=== PATIENT | female | born 1980 | race American Indian/Alaskan Native ===

== ENCOUNTER 2017-08-29 12:07 | Inpatient (IN) | payer SELFPAY ==
[2017-08-29] MEDS ORDERED: CARDIZEM ONE (12:16)
[2017-08-29] MEDS ORDERED: ASPIRIN PO ONE (12:24)
[2017-08-29] MEDS ORDERED: CARDIZEM/D5W 100MG/100ML 100 MG/100 ML BAG IV ONE (12:26)
[2017-08-29] MEDS ORDERED: CARDIZEM IV ONE ×2 (12:26→13:15)
[2017-08-29] MEDS ORDERED: SODIUM CHLORIDE FLUSH SYRINGE 10 ML IV PRN (13:45)
[2017-08-29] MEDS ORDERED: PROVENTIL IH PRN (13:45)
--- NOTE | 2017-08-29 13:45 | History and Physical Report ---
History of Present Illness History of present illness: 37 YO Female with Nicotine Dependence presents to ED for evaluation. Pt states that she has experienced heart palpitations that began at 0230 hrs and awoke her from sleep. Pt also acknowledges chest discomfort. Pt denies fever, chills, CP, NVD, Trauma, unintentional weight loss, night sweats, productive cough, recent ill contacts. EMS was notified, and upon arrival the patient was found to have Atrial Fib with RVR. Pt was treated with Adenosine and transported to [facility] for further care and evaluation. Pt seen and evaluated in ED and admitted to ICU. Pt subsequently downgraded to telemetry with control of patient heart rate achieved. Cardiology consulted in ED. Past History Past Medical History: other (Nicotine dependence) Past Surgical History: No surgical history, Other (reviewed) Social history: smoking Family history: CAD, hypertension Medications and Allergies Allergies Allergy/AdvReac Type Severity Reaction Status Date / Time No Known Allergies Allergy Unverified 08/29/17 12:31 Home Medications Medication Instructions Recorded Confirmed Last Taken Type Aspirin/Acetaminophen/Caffeine 1 each PO Q6H PRN 08/29/17 08/29/17 Unknown History [[employer] Ex-Str Powder Packet] Ibuprofen [Motrin] 800 mg PO Q4-6H PRN 08/29/17 08/29/17 Unknown History Active Meds: Active Medications Diltiazem HCl (Cardizem/D5w 100mg/100ml) 100 mg in 100 mls @ 5 mls/hr IV TITR ONE; Protocol Stop: 08/30/17 08:25 Review of Systems Constitutional: no weight loss, no weight gain, no fever, no chills Ears, nose, mouth and throat: no ear pain, no ear discharge, no tinnitis, no decreased hearing, no nose pain, no nasal congestion, no nasal discharge Breasts: no change in shape, no swelling, no mass Cardiovascular: palpitations, no chest pain, no orthopnea, no edema, no syncope , no lightheadedness Respiratory: no cough, no cough with sputum, no excessive sputum, no hemoptysis , no shortness of breath Gastrointestinal: no nausea, no vomiting, no diarrhea, no constipation, no change in bowel habits Genitourinary Female: no pelvic pain, no flank pain, no menorrhagia, no dysuria , no urinary frequency, no urgency Menstruation: no premenarcheal, no post hysterectomy, no ammenorrhea, no ammenorrhea on BC, no period normal Rectal: no pain, no incontinence, no bleeding Musculoskeletal: no neck stiffness, no neck pain, no shooting arm pain, no arm numbness/tingling, no low back pain, no shooting leg pain Integumentary: no rash, no pruritis, no redness, no sores, no wounds, no jaundice Neurological: no transient paralysis, no paralysis, no weakness, no parathesias , no numbness, no tingling, no seizures, no syncope Psychiatric: no memory loss, no change in sleep habits, no sleep disturbances, no insomnia, no hypersomnia, no change in appetite, no change in libido, no suicidal ideation Endocrine: no cold intolerance, no heat intolerance, no polyphagia, no excessive thirst, no polydipsia, no polyuria, no nocturia, no excessive sweating Hematologic/Lymphatic: no easy bruising, no easy bleeding, no lymphadenopathy, no lymphedema Allergic/Immunologic: no urticaria, no allergic rhinitis, no wheezing, no persistent infections Exam - Constitutional Vitals: Temp Pulse Resp BP Pulse Ox 97.4 F L 153 H 31 H 126/91 100 08/29/17 12:17 08/29/17 12:20 08/29/17 12:17 08/29/17 12:20 08/29/17 12:17 General appearance: Present: mild distress - EENT Eyes: Present: PERRL ENT: hearing intact, clear oral mucosa - Neck Neck: Present: supple, normal ROM - Respiratory Respiratory effort: normal Respiratory: bilateral: CTA - Cardiovascular Rhythm: irregularly irregular Heart Sounds: Present: S1 & S2. Absent: rub, click - Extremities Extremities: pulses symmetrical, No edema Peripheral Pulses: within normal limits - Abdominal General gastrointestinal: Present: soft, non-tender, non-distended, normal bowel sounds Female genitourinary: Present: normal - Integumentary Integumentary: Present: clear, warm, dry - Musculoskeletal Musculoskeletal: gait normal, strength equal bilaterally - Psychiatric Psychiatric: appropriate mood/affect, intact judgment & insight - Neurologic Neurologic: CNII-XII intact, moves all extremities Results - Labs CBC & Chem 7: 08/29/17 13:22 08/29/17 13:22 Assessment and Plan - Patient Problems (1) Atrial fibrillation with RVR Current Visit: Yes Status: Acute Plan to address problem: Shawna tracy, Admit to ICU, serial ekg, cardiology consulted in ED The high probability of a clinically significant, sudden or life threatening deterioration of the [cardiac, pulmonary, renal] system(s) required my full and direct attention, intervention and personal management. The aggregate critical care time was [65] minutes. This time is in addition to time spent performing reported procedures but includes the following: [x] Data Review and interpretation [x] Patient assessment and monitoring of vital signs [x] Documentation [x] Medication orders and management (2) Nicotine dependence Current Visit: Yes Status: Acute Qualifiers: Nicotine product type: cigarettes Substance use status: in withdrawal Qualified Code(s): F17.213 - Nicotine dependence, cigarettes, with withdrawal Plan to address problem: smoking cessation counseling, (3) Hypokalemia Current Visit: Yes Status: Acute Plan to address problem: repleted in ED (4) Hypomagnesemia Current Visit: Yes Status: Acute Plan to address problem: repleted in ED, (5) Acidosis Current Visit: Yes Status: Acute Plan to address problem: IVF resuscitation therapy, treat Atrial fib (6) Heart failure Current Visit: Yes Status: Acute Qualifiers: Heart failure type: diastolic Heart failure chronicity: acute Qualified Code(s): I50.31 - Acute diastolic (congestive) heart failure Plan to address problem: Echo, Admit to telemetry, cardiology consulted in ED, strict I/O, monitor uop q shift, daily weight, thyroid panel (7) DVT prophylaxis Current Visit: Yes Status: Acute Plan to address problem: scd to ble while in bed
--- NOTE | 2017-08-29 13:46 | XRay Report ---
PORTABLE CHEST INDICATION: Hypertension. COMPARISON: None similar at this institution. FINDINGS: Portable, frontal chest radiograph suggests top normal heart size. Normal mediastinal and hilar contours. Clear lungs. Intact bones. EKG leads. CONCLUSION: No acute disease. Thank you for the opportunity to participate in this patient's care.
[2017-08-29 13:49] LABS: Basophils % (Auto) 0.7 % (0.0-1.8); Eosinophils % (Auto) 0.1 % (0.0-4.3); Hematocrit 42.4 % (30.3-42.9); Hemoglobin 14.4 gm/dl (10.1-14.3); Lymphocytes # (Auto) 0.8 K/mm3 (1.2-5.4); Lymphocytes % (Auto) 12.9 % (13.4-35.0); Mean Corpuscular HGB Conc 34 % (30-34); Mean Corpuscular Hemoglobin 27 pg (28-32); Mean Corpuscular Volume 79 fl (79-97); Monocytes # (Auto) 0.5 K/mm3 (0.0-0.8); Monocytes % (Auto) 9.1 % (0.0-7.3); Platelet Count 187 K/mm3 (140-440); Red Blood Count 5.34 M/mm3 (3.65-5.03); Red Cell Distribution Width 14.8 % (13.2-15.2)
[2017-08-29 13:57] LABS: INR 0.87 (0.87-1.13)
[2017-08-29 13:58] LABS: Partial Thromboplastin Time 32.2 Sec. (24.2-36.6)
[2017-08-29 14:09] LABS: BUN/Creatinine Ratio 23; Blood Urea Nitrogen 9 mg/dL (7-17); Calcium 8.9 mg/dL (8.4-10.2); Hemolysis Index 4
[2017-08-29 14:11] LABS: Alanine Aminotransferase 23 units/L (7-56); Albumin 3.6 g/dL (3.9-5)
[2017-08-29 14:19] LABS: Free T4 (Free Thyroxine) 1.34 ng/dL (0.76-1.46)
[2017-08-29 14:33] LABS: Bilirubin,Direct < 0.2 mg/dL (0-0.2)
[2017-08-29] MEDS ORDERED: MAGNESIUM SULFATE 2GM/50ML 2 GM/50 ML BAG IV ONE (14:34)
[2017-08-29] MEDS ORDERED: K-DUR PO ONE (14:34)
--- NOTE | 2017-08-29 15:11 | Emergency Department Report ---
ED General Adult HPI - General Chief complaint: Arrhythmia/Palpitations Stated complaint: AFIB Time Seen by Provider: 08/29/17 12:23 Source: EMS Mode of arrival: Stretcher Limitations: Physical Limitation - History of Present Illness Initial comments: 37-year-old female presents to the emergency department complaining of her heart racing since 2:30 at night. He states that she has had some chest discomfort anterior and nonradiating and nonpleuritic. She thinks she might of had some fever or chills and has had occasional cough. She denies hemoptysis. She denies leg pain or swelling. She's had no recent travel. She actually has not checked her temperature. She states she only drinks alcohol 2 times a month. She's had no prior history of atrial fibrillation or cardiac problems nor any thyroid disease. -: Gradual Location: chest Radiation: non-radiation Severity scale (0 -10): 0 Quality: other (discomfort) Consistency: intermittent Improves with: none Worsens with: none Associated Symptoms: denies other symptoms, chest pain, cough, fever/chills ( undocumented), shortness of breath Treatments Prior to Arrival: other (EMS gave adenosine and was unsuccessful) - Related Data Home Medications Medication Instructions Recorded Confirmed Last Taken Aspirin/Acetaminophen/Caffeine 1 each PO Q6H PRN 08/29/17 08/29/17 Unknown [[employer] Ex-Str Powder Packet] Ibuprofen [Motrin] 800 mg PO Q4-6H PRN 08/29/17 08/29/17 Unknown Allergies Allergy/AdvReac Type Severity Reaction Status Date / Time No Known Allergies Allergy Unverified 08/29/17 12:31 ED Review of Systems ROS: Stated complaint: AFIB Other details as noted in HPI Constitutional: chills (subjective didn't check temperature), fever Eyes: denies: eye pain, eye discharge, vision change ENT: denies: ear pain, throat pain Respiratory: cough (nonproductive), shortness of breath. denies: wheezing Cardiovascular: chest pain (vague and intermittent). denies: palpitations Endocrine: no symptoms reported Gastrointestinal: denies: abdominal pain, nausea, diarrhea Genitourinary: denies: urgency, dysuria, discharge Musculoskeletal: denies: back pain, joint swelling, arthralgia, myalgia Skin: denies: rash, lesions Neurological: denies: headache, weakness, paresthesias Psychiatric: denies: anxiety, depression Hematological/Lymphatic: denies: easy bleeding, easy bruising ED Past Medical Hx - Past Medical History Previous Medical History?: No - Social History Smoking Status: Current Some Day Smoker Substance Use Type: Alcohol - Medications Home Medications: Home Medications Medication Instructions Recorded Confirmed Last Taken Type Aspirin/Acetaminophen/Caffeine 1 each PO Q6H PRN 08/29/17 08/29/17 Unknown History [[employer] Ex-Str Powder Packet] Ibuprofen [Motrin] 800 mg PO Q4-6H PRN 08/29/17 08/29/17 Unknown History ED Physical Exam - General Limitations: No Limitations General appearance: alert, in no apparent distress - Head Head exam: Present: atraumatic, normocephalic - Eye Eye exam: Present: normal appearance. Absent: PERRL, EOMI, scleral icterus - ENT ENT exam: Present: normal exam, mucous membranes moist - Neck Neck exam: Present: normal inspection. Absent: tenderness, meningismus - Respiratory Respiratory exam: Present: normal lung sounds bilaterally. Absent: respiratory distress - Cardiovascular Cardiovascular Exam: Present: tachycardia, irregular rhythm. Absent: systolic murmur, diastolic murmur, rubs, gallop - GI/Abdominal GI/Abdominal exam: Present: soft, normal bowel sounds. Absent: distended, tenderness, guarding, rebound, rigid - Extremities Exam Extremities exam: Present: normal inspection - Back Exam Back exam: Present: normal inspection - Neurological Exam Neurological exam: Present: alert, oriented X3, CN II-XII intact. Absent: motor sensory deficit - Psychiatric Psychiatric exam: Present: normal affect, normal mood - Skin Skin exam: Present: warm, dry, intact, normal color. Absent: rash ED Course Vital Signs 08/29/17 08/29/17 12:17 12:20 Temperature 97.4 F L Pulse Rate 153 H 153 H Respiratory 31 H Rate Blood Pressure 126/91 126/91 Blood Pressure 126/91 [Right] O2 Sat by Pulse 100 Oximetry - Reevaluation(s) Reevaluation #1: Patient was given diltiazem and placed on it diltiazem drip. This is beneficial. She was found to have hypokalemia and hypomagnesemia. A chest x- ray was normal her white count was normal. I do not think this patient has an infection. However I will order a d-dimer. I don't think she needs empiric By obvious. She is admitted by Dr. Alvarez for further care and evaluation in stable condition. Stress with Dr. Aguilar and consulted. 08/29/17 15:17 08/29/17 15:19 ED Medical Decision Making - Lab Data Result diagrams: 08/29/17 13:22 08/29/17 13:22 Laboratory Results - last 24 hr 08/29/17 08/29/17 08/29/17 13:22 13:22 13:22 WBC 6.0 RBC 5.34 H Hgb 14.4 H Hct 42.4 MCV 79 MCH 27 L MCHC 34 RDW 14.8 Plt Count 187 Lymph % (Auto) 12.9 L [place] % (Auto) 9.1 H Eos % (Auto) 0.1 Baso % (Auto) 0.7 Lymph # 0.8 L [place] # 0.5 Eos # 0.0 Baso # 0.0 Seg Neutrophils % 77.2 H Seg Neutrophils # 4.6 PT 12.3 INR 0.87 APTT 32.2 Sodium 140 Potassium 2.9 L* Chloride 104.6 Carbon Dioxide 19 L Anion Gap 19 BUN 9 Creatinine 0.4 L Estimated GFR > 60 BUN/Creatinine Ratio 23 Glucose 103 H Lactic Acid Calcium 8.9 Magnesium Total Bilirubin Direct Bilirubin Indirect Bilirubin AST ALT Alkaline Phosphatase Troponin T < 0.010 NT-Pro-B Natriuret Pep Total Protein Albumin Albumin/Globulin Ratio TSH Free T4 HCG, Qual 08/29/17 08/29/17 08/29/17 13:22 13:22 13:22 WBC RBC Hgb Hct MCV MCH MCHC RDW Plt Count Lymph % (Auto) [place] % (Auto) Eos % (Auto) Baso % (Auto) Lymph # [place] # Eos # Baso # Seg Neutrophils % Seg Neutrophils # PT INR APTT Sodium Potassium Chloride Carbon Dioxide Anion Gap BUN Creatinine Estimated GFR BUN/Creatinine Ratio Glucose Lactic Acid 2.20 H* Calcium Magnesium 1.60 L Total Bilirubin 0.60 Direct Bilirubin < 0.2 Indirect Bilirubin 0.4 AST 45 H ALT 23 Alkaline Phosphatase 66 Troponin T NT-Pro-B Natriuret Pep 748.6 H Total Protein 8.6 H Albumin 3.6 L Albumin/Globulin Ratio 0.7 TSH Free T4 HCG, Qual Negative 08/29/17 13:22 WBC RBC Hgb Hct MCV MCH MCHC RDW Plt Count Lymph % (Auto) [place] % (Auto) Eos % (Auto) Baso % (Auto) Lymph # [place] # Eos # Baso # Seg Neutrophils % Seg Neutrophils # PT INR APTT Sodium Potassium Chloride Carbon Dioxide Anion Gap BUN Creatinine Estimated GFR BUN/Creatinine Ratio Glucose Lactic Acid Calcium Magnesium Total Bilirubin Direct Bilirubin Indirect Bilirubin AST ALT Alkaline Phosphatase Troponin T NT-Pro-B Natriuret Pep Total Protein Albumin Albumin/Globulin Ratio TSH 3.150 Free T4 1.34 HCG, Qual - EKG Data -: EKG Interpreted by Me Rate: tachycardia - EKG Data Interpretation: other (fibrillation with rapid ventricular response nonspecific ST-T wave changes normal axis) - Radiology Data interpreted by me: Chest x-ray no acute process Critical care attestation.: If time is entered above; I have spent that time in minutes in the direct care of this critically ill patient, excluding procedure time. ED Disposition Clinical Impression: Atrial fibrillation with RVR, Hypokalemia, Hypomagnesemia URI (upper respiratory infection) Qualifiers: URI type: unspecified viral URI Qualified Code(s): J06.9 - Acute upper respiratory infection, unspecified Disposition: -09 OP ADMIT IP TO THIS HOSP Is pt being admited?: Yes Does the pt Need Aspirin: Yes Condition: Stable Referrals: PRIMARY CARE, [Primary Care Provider] - 3-5 Days Time of Disposition: 15:21
[2017-08-29] MEDS: CARDIZEM PO SCH ×2 (16:11→17:43)
--- NOTE | 2017-08-29 17:46 | Consultation ---
History of Present Illness Consult date: 08/29/17 Consult reason: atrial fibrillation History of present illness: The patient is a 37-year-old woman with no prior cardiac history. She presents to the emergency room with symptoms of shortness of breath and palpitations, found with rapid atrial fibrillation. Her symptoms began less than 24 hours ago , and she feels better after intravenous diltiazem given in the emergency room has achieved modest rate control. There is no chest pain, no edema and no syncope. Her symptoms followed some alcohol use, she states that she took at least 2 drinks prior to onset of palpitations. In addition, she admits to heavy consumption of high caffeine beverages such as red bull. She denies history of thyroid disease or prior cardiac dysrhythmia. Laboratory values in the emergency room include a low potassium of 2.9, low magnesium of 1.6, but normal TSH. Past History Past Medical History: other (Nicotine dependence) Past Surgical History: No surgical history, Other (reviewed) Social history: smoking Family history: CAD, hypertension Medications and Allergies Allergies Allergy/AdvReac Type Severity Reaction Status Date / Time No Known Allergies Allergy Unverified 08/29/17 12:31 Home Medications Medication Instructions Recorded Confirmed Last Taken Type Aspirin/Acetaminophen/Caffeine 1 each PO Q6H PRN 08/29/17 08/29/17 Unknown History [[employer] Ex-Str Powder Packet] Ibuprofen [Motrin] 800 mg PO Q4-6H PRN 08/29/17 08/29/17 Unknown History Active Meds: Active Medications Albuterol (Proventil) 2.5 mg IH Q3HRT PRN PRN Reason: Shortness Of Breath Diltiazem HCl (Cardizem) 30 mg PO Q6HR [facility] Last Admin: 08/29/17 17:43 Dose: Not Given Sodium Chloride (Sodium Chloride Flush Syringe 10 Ml) 10 ml IV BID BETTY Sodium Chloride (Sodium Chloride Flush Syringe 10 Ml) 10 ml IV PRN PRN PRN Reason: LINE FLUSH Review of Systems Cardiovascular: palpitations, rapid/irregular heart beat, shortness of breath, no chest pain, no orthopnea, no edema, no syncope, no lightheadedness Physical Examination Vital Signs Pulse Resp 133 H 29 H 08/29/17 12:10 08/29/17 12:10 General appearance: no acute distress HEENT: Positive: PERRL Cardiac: Positive: irregularly irregular Lungs: Positive: Decreased Breath Sounds Neuro: Positive: Grossly Intact Abdomen: Positive: Soft Female genitourinary: deferred Skin: Positive: Clear Extremities: Absent: edema Results 08/29/17 13:22 08/29/17 13:22 Cardiac Enzymes 08/29/17 Range/Units 13:22 AST 45 H (5-40) units/L Coagulation 08/29/17 Range/Units 13:22 PT 12.3 (12.2-14.9) Sec. INR 0.87 (0.87-1.13) APTT 32.2 (24.2-36.6) Sec. CBC 08/29/17 Range/Units 13:22 WBC 6.0 (4.5-11.0) K/mm3 RBC 5.34 H (3.65-5.03) M/mm3 Hgb 14.4 H (10.1-14.3) gm/dl Hct 42.4 (30.3-42.9) % Plt Count 187 (140-440) K/mm3 Lymph # 0.8 L (1.2-5.4) K/mm3 [place] # 0.5 (0.0-0.8) K/mm3 Eos # 0.0 (0.0-0.4) K/mm3 Baso # 0.0 (0.0-0.1) K/mm3 Comprehensive Metabolic Panel 08/29/17 08/29/17 Range/Units 13:22 13:22 Sodium 140 (137-145) mmol/L Potassium 2.9 L* (3.6-5.0) mmol/L Chloride 104.6 (98-107) mmol/L Carbon Dioxide 19 L (22-30) mmol/L BUN 9 (7-17) mg/dL Creatinine 0.4 L (0.7-1.2) mg/dL Glucose 103 H (65-100) mg/dL Calcium 8.9 (8.4-10.2) mg/dL Direct Bilirubin < 0.2 (0-0.2) mg/dL Indirect Bilirubin 0.4 mg/dL AST 45 H (5-40) units/L ALT 23 (7-56) units/L Alkaline Phosphatase 66 (35-129) units/L Total Protein 8.6 H (6.3-8.2) g/dL Albumin 3.6 L (3.9-5) g/dL EKG interpretations - Telemetry EKG Rhythm: Atrial Fibrillation Assessment and Plan - Patient Problems (1) Atrial fibrillation with RVR Current Visit: Yes Status: Acute Plan to address problem: Patient admitted with new onset atrial fibrillation. Optimal rate control has been achieved with Cardizem, which will be continued. An echocardiogram will be done for left ventricular function assessment. In addition to alcohol and caffeinated beverages, high low potassium and low magnesium and also potential etiologies. We will recommend reduction of electrolyte abnormalities.
[2017-08-29] MEDS ORDERED: CORDARONE 150 MG in D5W 100 ML IV ONE (18:23)
[2017-08-29 20:56] LABS: Amphetamine Screen,Urine PRESUMPTIVE NEGATIVE; Benzodiazepines Screen,Urine PRESUMPTIVE NEGATIVE; Cocaine Screen,Urine PRESUMPTIVE NEGATIVE; Methadone Screen,Urine PRESUMPTIVE NEGATIVE; Opiate Screen,Urine PRESUMPTIVE NEGATIVE
[2017-08-29 21:11] LABS: Cannabinoid Screen,Urine PRESUMPTIVE POSITIVE
[2017-08-29] MEDS: HEPARIN SUB-Q SCH (22:17)
[2017-08-29] MEDS: SODIUM CHLORIDE FLUSH SYRINGE 10 ML IV SCH (22:17)
[2017-08-29] MEDS ORDERED: AMBIEN PO PRN (23:16)
[2017-08-30] MEDS: CARDIZEM PO SCH ×4 (00:25→20:00)
[2017-08-30] MEDS: HEPARIN SUB-Q SCH (09:56)
--- NOTE | 2017-08-30 10:40 | Progress Note ---
Assessment and Plan Assessment and plan: Patient is a 37 yo woman with history of tobacco dependancy who pw sob and palpitations. found with rapid atrial fibrillation. Her symptoms began less than 24 hours ago, and she feels better after intravenous diltiazem given in the emergency room has achieved modest rate control. Patient was found to have very low potassium levels of 2.9, low magnesium of 1.6, but normal TSH, UDS positive for marijuana. * pCXR reported as normal -Atrial fibrillation with RVR: Patient admitted with new onset atrial fibrillation. Optimal rate control has been achieved with Cardizem, which will be continued. An echocardiogram will be done for left ventricular function assessment. Advised to limit alcohol and caffeine beverages. Cardiology is following -Nicotine dependence: smoking cessation counseling -Severe Hypokalemia: repleted in ED -Hypomagnesemia: repleted in ED, -Suspected metabolic Acidosis: IVF resuscitation therapy, treat Atrial fib -Suspected Acute diastolic Heart failure: Echo, Admit to telemetry, cardiology consulted in ED, strict I/O, monitor uop q shift, daily weight, thyroid panel -DVT prophylaxis: scd to ble while in bed, sq heparin D/w Dr. Aguilar, ok to discharge if potassium, mag levels are stable and he will contact me if anything is wrong with ECHO. Dr. Aguilar wants her on Eliquis, Amidarone 200mg/d and Cardizem CD 180mg/d with follow up in his office. However , the D-Dimer is elevated; therefore, will order stat CTA chest r/o PE. History Interval history: Patient was seen and examined. Follow-up on current diagnosis of palpitation, resolved. Overnight uneventful. Patient denies any chest pain, shortness breath , nausea/vomiting or severe headaches. Imaging, nursing note, chart, labs and old chart reviewed. Discussed with patient. Hospitalist Physical - Physical exam Narrative exam: GEN: WDWN, NAD, Awake, Alert, Orientated x 3 HEENT: NCAT, EOMI, PERRL, OP Clear NECK: supple, no adenopathy, no thyromegaly, no JVD CVS/HEART: RRR, normal S1S2, pulses present bilaterally CHEST/LUNGS: CTA B, Symmetrical chest expansion, good air entry bilaterally GI/Abdomen: soft, NTND, good bowel sounds, no guarding or rebound /Bladder: no suprapubic tenderness, no CVA or paraspinal tenderness EXT/Skin: no c/c/e, no obvious rash MSK: FROM x 4 Neuro: CN 2-12 grossly intact, no new focal deficits Psych: calm - Constitutional Vitals: Temp Pulse Resp BP Pulse Ox 98.4 F 84 18 117/74 98 08/29/17 23:49 08/30/17 07:33 08/29/17 23:49 08/30/17 06:29 08/29/17 23:49 General appearance: Present: no acute distress Results - Labs CBC & Chem 7: 08/29/17 13:22 08/30/17 10:57 Labs: Laboratory Last Values WBC 6.0 K/mm3 (4.5-11.0) 08/29/17 13:22 RBC 5.34 M/mm3 (3.65-5.03) H 08/29/17 13:22 Hgb 14.4 gm/dl (10.1-14.3) H 08/29/17 13:22 Hct 42.4 % (30.3-42.9) 08/29/17 13:22 MCV 79 fl (79-97) 08/29/17 13:22 MCH 27 pg (28-32) L 08/29/17 13:22 MCHC 34 % (30-34) 08/29/17 13:22 RDW 14.8 % (13.2-15.2) 08/29/17 13:22 Plt Count 187 K/mm3 (140-440) 08/29/17 13:22 Lymph % (Auto) 12.9 % (13.4-35.0) L 08/29/17 13:22 Sac % (Auto) 9.1 % (0.0-7.3) H 08/29/17 13:22 Eos % (Auto) 0.1 % (0.0-4.3) 08/29/17 13:22 Baso % (Auto) 0.7 % (0.0-1.8) 08/29/17 13:22 Lymph # 0.8 K/mm3 (1.2-5.4) L 08/29/17 13:22 Sac # 0.5 K/mm3 (0.0-0.8) 08/29/17 13:22 Eos # 0.0 K/mm3 (0.0-0.4) 08/29/17 13:22 Baso # 0.0 K/mm3 (0.0-0.1) 08/29/17 13:22 Seg Neutrophils % 77.2 % (40.0-70.0) H 08/29/17 13:22 Seg Neutrophils # 4.6 K/mm3 (1.8-7.7) 08/29/17 13:22 PT 12.3 Sec. (12.2-14.9) 08/29/17 13:22 INR 0.87 (0.87-1.13) 08/29/17 13:22 APTT 32.2 Sec. (24.2-36.6) 08/29/17 13:22 D-Dimer 587.00 ng/mlDDU (0-234) H 08/29/17 16:47 Sodium 140 mmol/L (137-145) 08/29/17 13:22 Potassium 2.9 mmol/L (3.6-5.0) L* 08/29/17 13:22 Chloride 104.6 mmol/L (98-107) 08/29/17 13:22 Carbon Dioxide 19 mmol/L (22-30) L 08/29/17 13:22 Anion Gap 19 mmol/L 08/29/17 13:22 BUN 9 mg/dL (7-17) 08/29/17 13:22 Creatinine 0.4 mg/dL (0.7-1.2) L 08/29/17 13:22 Estimated GFR > 60 ml/min 08/29/17 13:22 BUN/Creatinine Ratio 23 % 08/29/17 13:22 Glucose 103 mg/dL (65-100) H 08/29/17 13:22 Lactic Acid 1.70 mmol/L (0.7-2.0) 08/29/17 16:47 Calcium 8.9 mg/dL (8.4-10.2) 08/29/17 13:22 Magnesium 1.60 mg/dL (1.7-2.3) L 08/29/17 13:22 Total Bilirubin 0.60 mg/dL (0.1-1.2) 08/29/17 13:22 Direct Bilirubin < 0.2 mg/dL (0-0.2) 08/29/17 13:22 Indirect Bilirubin 0.4 mg/dL 08/29/17 13:22 AST 45 units/L (5-40) H 08/29/17 13:22 ALT 23 units/L (7-56) 08/29/17 13:22 Alkaline Phosphatase 66 units/L (35-129) 08/29/17 13:22 Troponin T < 0.010 ng/mL (0.00-0.029) 08/29/17 17:51 NT-Pro-B Natriuret Pep 748.6 pg/mL (0-450) H 08/29/17 13:22 Total Protein 8.6 g/dL (6.3-8.2) H 08/29/17 13:22 Albumin 3.6 g/dL (3.9-5) L 08/29/17 13:22 Albumin/Globulin Ratio 0.7 % 08/29/17 13:22 TSH 3.150 mlU/mL (0.270-4.200) 08/29/17 13:22 Free T4 1.34 ng/dL (0.76-1.46) 08/29/17 13:22 HCG, Qual Negative (Negative) 08/29/17 13:22 Urine Opiates Screen Presumptive negative 08/29/17 20:13 Urine Methadone Screen Presumptive negative 08/29/17 20:13 Ur Barbiturates Screen Presumptive negative 08/29/17 20:13 Ur Phencyclidine Scrn Presumptive negative 08/29/17 20:13 Ur Amphetamines Screen Presumptive negative 08/29/17 20:13 U Benzodiazepines Scrn Presumptive negative 08/29/17 20:13 Urine Cocaine Screen Presumptive negative 08/29/17 20:13 U Marijuana (THC) Screen Presumptive positive 08/29/17 20:13 Drugs of Abuse Note Disclamer 08/29/17 20:13
--- NOTE | 2017-08-30 11:43 | Progress Note ---
Assessment and Plan New onset atrial fibrillation, paroxysmal likely s/t to alcohol and caffeinated beverages, low potassium and low magnesium. currently in sinus rhythm on cardizem for suppression normal TSH Hypokalemia Hypomagnesemia Plan: Echocardiogram today, for left ventricular function assessment. Continue cardizem for paroxysmal atrial fibrillation. In addition, we will add amiodarone for suppression of afib. Initiate oral anticoagulation with eliquis for CVA prophylaxis. Subjective Date of service: 08/30/17 Interval history: Patient has no complaints. She denies palpitations overnight. Stable sinus rhythm on telemetry. Morning labs pending. Objective Vital Signs Temp Pulse Resp BP BP Pulse Ox 08/30/17 07:33 84 08/30/17 06:29 98 H 117/74 08/30/17 00:25 98 H 91/53 08/29/17 23:49 98.4 F 94 H 18 91/53 98 08/29/17 19:42 98.1 F 88 18 95/62 99 08/29/17 17:58 87 18 113/71 100 08/29/17 15:00 75 24 97/76 100 08/29/17 14:45 96 H 21 115/76 100 08/29/17 14:30 85 17 105/69 100 08/29/17 14:15 89 21 103/56 100 08/29/17 14:01 81 26 H 105/59 100 08/29/17 13:45 85 22 115/69 100 08/29/17 13:30 95 H 18 121/94 100 08/29/17 13:20 129 H 127/88 08/29/17 13:15 129 H 29 H 127/88 100 08/29/17 13:00 108 H 30 H 117/78 100 08/29/17 12:46 109 H 26 H 136/90 100 08/29/17 12:30 101 H 29 H 124/86 100 08/29/17 12:20 153 H 126/91 08/29/17 12:17 97.4 F L 153 H 31 H 126/91 126/91 100 08/29/17 12:16 139 H 35 H 126/91 100 08/29/17 12:10 133 H 29 H - Physical Examination General: No Apparent Distress HEENT: Positive: PERRL Cardiac: Positive: Reg Rate and Rhythm Lungs: Positive: Decreased Breath Sounds Neuro: Positive: Grossly Intact Extremities: Absent: edema - Labs and Meds Cardiac Enzymes 08/29/17 Range/Units 13:22 AST 45 H (5-40) units/L Coagulation 08/29/17 Range/Units 13:22 PT 12.3 (12.2-14.9) Sec. INR 0.87 (0.87-1.13) APTT 32.2 (24.2-36.6) Sec. CBC 08/29/17 Range/Units 13:22 WBC 6.0 (4.5-11.0) K/mm3 RBC 5.34 H (3.65-5.03) M/mm3 Hgb 14.4 H (10.1-14.3) gm/dl Hct 42.4 (30.3-42.9) % Plt Count 187 (140-440) K/mm3 Lymph # 0.8 L (1.2-5.4) K/mm3 Boundary # 0.5 (0.0-0.8) K/mm3 Eos # 0.0 (0.0-0.4) K/mm3 Baso # 0.0 (0.0-0.1) K/mm3 Comprehensive Metabolic Panel 08/29/17 08/29/17 Range/Units 13:22 13:22 Sodium 140 (137-145) mmol/L Potassium 2.9 L* (3.6-5.0) mmol/L Chloride 104.6 (98-107) mmol/L Carbon Dioxide 19 L (22-30) mmol/L BUN 9 (7-17) mg/dL Creatinine 0.4 L (0.7-1.2) mg/dL Glucose 103 H (65-100) mg/dL Calcium 8.9 (8.4-10.2) mg/dL Direct Bilirubin < 0.2 (0-0.2) mg/dL Indirect Bilirubin 0.4 mg/dL AST 45 H (5-40) units/L ALT 23 (7-56) units/L Alkaline Phosphatase 66 (35-129) units/L Total Protein 8.6 H (6.3-8.2) g/dL Albumin 3.6 L (3.9-5) g/dL
[2017-08-30 12:23] LABS: BUN/Creatinine Ratio 20; Blood Urea Nitrogen 10 mg/dL (7-17); Calcium 8.2 mg/dL (8.4-10.2); Hemolysis Index 3
[2017-08-30] MEDS: BABY ASPIRIN PO SCH (14:47)
[2017-08-30] MEDS: SODIUM CHLORIDE FLUSH SYRINGE 10 ML IV SCH ×2 (14:47→22:07)
[2017-08-30] MEDS ORDERED: CORDARONE PO ONE (15:00)
--- NOTE | 2017-08-30 18:40 | Cat Scan Report ---
FINAL REPORT EXAM: CT ANGIO CHEST HISTORY: elevated d-dimer, chest pains, afib TECHNIQUE: Spiral CTA of the chest after the uneventful administration of IV contrast. Multiplanar reformations. PRIORS: None. FINDINGS: Chest: The main and bilateral proximal pulmonary arteries are normally opacified without endoluminal filling defects. Cardiac size prominent or mildly enlarged. No apparent aneurysm, pseudoaneurysm or aortic dissection. No significant mediastinal lymph node enlargement. Multiple, prominent or mildly enlarged lymph nodes scattered in the bilateral axillary regions, left greater than right, largest measuring approximately 1.5 x 1.7 cm in cross-sectional diameter may be reactive, but nonspecific. Lungs show probable mild bibasilar atelectasis versus scarring. No discrete parenchymal mass, focal consolidation or pleural effusions. No apparent pneumothorax. Visualized upper abdomen grossly unremarkable. IMPRESSION: 1. No evidence of large vessel or central pulmonary emboli. No acute consolidation. 2. Mild axillary lymph node enlargement or adenopathy of uncertain etiology or significance. Clinical correlation and followup suggested.
[2017-08-30] MEDS: ELIQUIS PO SCH (21:30)
[2017-08-31] MEDS: CARDIZEM PO SCH ×2 (02:25→07:06)
[2017-08-31] MEDS ORDERED: MILK OF MAGNESIA PO PRN (06:55)
[2017-08-31] MEDS: BABY ASPIRIN PO SCH (09:21)
[2017-08-31] MEDS: ELIQUIS PO SCH (09:22)
[2017-08-31] MEDS: SODIUM CHLORIDE FLUSH SYRINGE 10 ML IV SCH (09:23)
[2017-08-31] MEDS ORDERED: CORDARONE PO SCH (10:00)
--- NOTE | 2017-08-31 10:20 | Discharge Summary ---
Providers - Providers Date of Admission: 08/29/17 13:58 Date of discharge: 08/31/17 Attending physician: SHERRELL ROA 08/29/17 12:57 Consult to Physician [CONS] Urgent Comment: Consulting Provider: DORENE BARBER Physician Instructions: Reason For Exam: AFIB 08/29/17 14:22 Consult to Physician [CONS] Urgent Comment: Consulting Provider: DORENE BARBER Physician Instructions: Reason For Exam: AF RVR Primary care physician: ROD PULLER Hospitalization Condition: Stable Hospital course: Patient is a 37 yo woman with history of tobacco dependancy who pw sob and palpitations. found with rapid atrial fibrillation. Her symptoms began less than 24 hours ago, and she feels better after intravenous diltiazem given in the emergency room has achieved modest rate control. Patient was found to have very low potassium levels of 2.9, low magnesium of 1.6, but normal TSH, UDS positive for marijuana. * pCXR reported as normal -Atrial fibrillation with RVR: Patient admitted with new onset atrial fibrillation. Optimal rate control has been achieved with Cardizem, which will be continued. An echocardiogram will be done for left ventricular function assessment. Advised to limit alcohol and caffeine beverages. Cardiology is following -Nicotine dependence: smoking cessation counseling -Severe Hypokalemia: repleted in ED -Hypomagnesemia: repleted in ED, -Suspected metabolic Acidosis: IVF resuscitation therapy, treat Atrial fib -Suspected Acute diastolic Heart failure: Echo, Admit to telemetry, cardiology consulted in ED, strict I/O, monitor uop q shift, daily weight, thyroid panel -DVT prophylaxis: scd to ble while in bed, sq heparin D/w Dr. Barber, ok to discharge if potassium, mag levels are stable and he will contact me if anything is wrong with ECHO. Dr. Barber wants her on Eliquis, Amidarone 200mg/d and Cardizem CD 180mg/d with follow up in his office. However , the D-Dimer is elevated; therefore, will order stat CTA chest r/o PE==>neg for PE Disposition: - TO HOME OR SELFCARE Time spent for discharge: 35 minutes Core Measure Documentation - Palliative Care Palliative Care/ Comfort Measures: Not Applicable - Core Measures Any of the following diagnoses?: none - VTE Discharge Requirements Deep Vein Thrombosis/Pulmonary Embolism Present on Admission: No Has pt received <5 days of overlap therapy or INR<2.0: No Anticoagulant overlap therapy prescribed at discharge: No Contraindication No Overlap Therapy order at DC: Not Indicated Exam - Physical Exam Narrative exam: GEN: WDWN, NAD, Awake, Alert, Orientated x 3 HEENT: NCAT, EOMI, PERRL, OP Clear NECK: supple, no adenopathy, no thyromegaly, no JVD CVS/HEART: RRR, normal S1S2, pulses present bilaterally CHEST/LUNGS: CTA B, Symmetrical chest expansion, good air entry bilaterally GI/Abdomen: soft, NTND, good bowel sounds, no guarding or rebound /Bladder: no suprapubic tenderness, no CVA or paraspinal tenderness EXT/Skin: no c/c/e, no obvious rash MSK: FROM x 4 Neuro: CN 2-12 grossly intact, no new focal deficits Psych: calm - Constitutional Vitals: Temp Pulse Resp BP Pulse Ox 98.2 F 85 18 134/92 98 08/31/17 07:31 08/31/17 07:31 08/31/17 07:31 08/31/17 07:31 08/31/17 07:31 Plan Activity: other (no strenous activity until cleared by Cardiology) Diet: low salt Follow up with: PRIMARY CAREMD [Primary Care Provider] - 3-5 Days DORENE BARBER MD [Staff Physician] - 7 Days Prescriptions: Zolpidem [Ambien] 5 mg PO QHS PRN #10 tablet PRN Reason: Sleep Amiodarone [Cordarone 200 MG TAB] 200 mg PO QDAY #30 tablet Apixaban [Eliquis] 5 mg PO Q12HR #60 tablet Diltiazem Cd [Cardizem CD] 180 mg PO QDAY #30 capsule
[2017-08-31 11:00] LABS: Hematocrit 34.7 % (30.3-42.9); Hemoglobin 11.8 gm/dl (10.1-14.3); Mean Corpuscular HGB Conc 34 % (30-34); Mean Corpuscular Hemoglobin 27 pg (28-32); Mean Corpuscular Volume 81 fl (79-97); Platelet Count 163 K/mm3 (140-440); Red Cell Distribution Width 15.1 % (13.2-15.2)
[2017-08-31] MEDS ORDERED: CARDIZEM CD PO SCH (11:00)
[2017-08-31 11:13] LABS: BUN/Creatinine Ratio 18; Blood Urea Nitrogen 7 mg/dL (7-17); Calcium 8.7 mg/dL (8.4-10.2); Hemolysis Index 3
--- NOTE | 2017-08-31 12:30 | Progress Note ---
Assessment and Plan New onset atrial fibrillation, paroxysmal likely s/t to alcohol and caffeinated beverages, low potassium and low magnesium. currently in sinus rhythm on cardizem and amiodarone for suppression. initiated on eliquis for oral anticoagulation normal TSH Hypokalemia Hypomagnesemia Echocardiogram reports a normal LVEF. Recommend: Continue cardizem, amiodarone and eliquis for paroxysmal atrial fibrillation. Stable for discharge cardiac brown. Patient will f/u with [facility] on September 07. Subjective Date of service: 08/31/17 Interval history: Patient has no complaints. Stable sinus rhythm on telemetry. Objective Vital Signs Temp Pulse Resp BP Pulse Ox 08/31/17 07:31 98.2 F 85 18 134/92 98 08/31/17 07:06 89 08/31/17 04:43 98.5 F 80 18 117/72 97 08/31/17 04:00 89 08/30/17 23:30 98.0 F 89 18 137/86 98 08/30/17 20:25 100 H 08/30/17 19:35 98.3 F 94 H 18 121/90 99 08/30/17 16:14 98.2 F 89 18 121/91 99 08/30/17 14:44 92 H 08/30/17 13:40 98.5 F 94 H 18 117/80 99 - Physical Examination General: No Apparent Distress HEENT: Positive: PERRL Cardiac: Positive: Reg Rate and Rhythm Neuro: Positive: Grossly Intact Extremities: Absent: edema - Labs and Meds CBC 08/31/17 Range/Units 10:28 WBC 3.0 L (4.5-11.0) K/mm3 RBC 4.30 (3.65-5.03) M/mm3 Hgb 11.8 (10.1-14.3) gm/dl Hct 34.7 D (30.3-42.9) % Plt Count 163 (140-440) K/mm3 Comprehensive Metabolic Panel 08/30/17 08/31/17 Range/Units 10:57 10:28 Sodium 138 (137-145) mmol/L Potassium 4.1 D 3.7 (3.6-5.0) mmol/L Chloride 102.7 (98-107) mmol/L Carbon Dioxide 24 (22-30) mmol/L BUN 7 (7-17) mg/dL Creatinine 0.4 L (0.7-1.2) mg/dL Glucose 95 (65-100) mg/dL Calcium 8.7 (8.4-10.2) mg/dL
[2017-08-31 14:39] VITALS: BP 111/77
== END 2017-08-31 14:00 | disposition home or self-care (01) | DRG 308 ==
LOC: ED 12:07 → 4A 13:58
PROVIDERS: ADMIT Internal Medicine; ATTEND Internal Medicine
DX: I48.0 Paroxysmal atrial fibrillation (principal); I50.31 Acute diastolic (congestive) heart failure; E87.2 Acidosis; F17.200 Nicotine dependence, unspecified, uncomplicated; E87.6 Hypokalemia; E83.42 Hypomagnesemia; F12.90 Cannabis use, unspecified, uncomplicated; J06.9 Acute upper respiratory infection, unspecified; Z71.6 Tobacco abuse counseling; Z82.49 Family history of ischemic heart disease and other diseases of the circulatory system; Z79.82 Long term (current) use of aspirin
CPT/HCPCS: 36415; 71045; 71275; 80048; 80074; 80307; 82140; 83735; 83880; 84439; 84443; 84484; 84703; 85025; 85027; 85379; 85610; 85730; 87040; 87086; 93005; 93010; 93306; 96365; 96375; 96376; J0282; J1644; J3475; Q9967